=== PATIENT | female | born 1985 | race Two or more races ===

== ENCOUNTER 2019-11-18 12:35 | Outpatient (CLI) | payer OTHER ==
[~2019-11-18 12:35] MED LIST: ZOFRAN4 MG SL
[2019-11-19] MEDS ORDERED: NAPR500T14 PO (16:49)
== END 2019-11-18 12:45 | disposition home or self-care (01) ==
LOC: RAD 12:35
DX: N72 Inflammatory disease of cervix uteri (principal); Z30.2 Encounter for sterilization; M25.512 Pain in left shoulder; M25.522 Pain in left elbow; E66.01 Morbid (severe) obesity due to excess calories; Z68.30 Body mass index [BMI] 30.0-30.9, adult

== ENCOUNTER 2019-11-27 14:52 | Outpatient (CLI) | payer OTHER ==
[~2019-11-27 14:52] MED LIST changes: +NAPR500T14 PO
== END 2019-11-27 15:00 | disposition home or self-care (01) ==
LOC: RAD 14:52
PROVIDERS: ATTEND Physical Medicine & Rehabilitation
DX: M54.5 Low back pain (principal); M53.3 Sacrococcygeal disorders, not elsewhere classified

== ENCOUNTER 2019-12-03 14:05 | Outpatient (CLI) | payer OTHER | END 2019-12-03 14:27 | disposition home or self-care (01) | LOC: MAMO-SONO 14:05 | PROVIDERS: ATTEND Physical Medicine & Rehabilitation | DX: M75.42 Impingement syndrome of left shoulder (principal) ==